=== PATIENT | female | born 1980 | race Caucasian/White ===

== ENCOUNTER → 2016-06-14 | Outpatient (CLI) | payer OTHER | LOC: BMCIMAGING 07:51 | PROVIDERS: ATTEND Internal Medicine | DX: R79.89 Other specified abnormal findings of blood chemistry (principal) ==

== ENCOUNTER → 2018-03-28 | Outpatient (CLI) | payer OTHER | LOC: FIMAGING 14:24 | PROVIDERS: ATTEND Advanced Practice Midwife | DX: O09.513 Supervision of elderly primigravida, third trimester (principal); O10.013 Pre-existing essential hypertension complicating pregnancy, third trimester; Z3A.36 36 weeks gestation of pregnancy ==

== ENCOUNTER → 2018-05-14 | Outpatient (CLI) | payer OTHER | LOC: FIMAGING 07:43 | PROVIDERS: ATTEND Advanced Practice Midwife | DX: O09.512 Supervision of elderly primigravida, second trimester (principal); O10.912 Unspecified pre-existing hypertension complicating pregnancy, second trimester; Z3A.19 19 weeks gestation of pregnancy ==

== ENCOUNTER → 2018-06-13 | Outpatient (CLI) | payer OTHER | LOC: FIMAGING 09:09 | PROVIDERS: ATTEND Advanced Practice Midwife | DX: O09.512 Supervision of elderly primigravida, second trimester (principal) ==

== ENCOUNTER → 2018-07-11 | Outpatient (CLI) | payer OTHER | LOC: FIMAGING 08:31 | PROVIDERS: ATTEND Advanced Practice Midwife | DX: O09.513 Supervision of elderly primigravida, third trimester (principal); Z3A.28 28 weeks gestation of pregnancy ==

== ENCOUNTER → 2018-08-08 | Outpatient (CLI) | payer OTHER | LOC: FIMAGING 12:00 ==

== ENCOUNTER → 2018-09-05 | Outpatient (CLI) | payer OTHER | LOC: FIMAGING 08:29 ==